=== PATIENT | male | born 2005 | race Hispanic/Latino ===

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

== ENCOUNTER 2024-01-03 12:09 | Emergency (ER) | payer MEDICAID, OTHER, SELFPAY ==
[2024-01-03] MEDS ORDERED: Fluorescein Opthalmic Strip ONE (13:21)
[2024-01-03] MEDS ORDERED: Proparacaine 0.5% Opth 15 ML BOT ONE (13:22)
== END 2024-01-03 14:12 | disposition home or self-care (01) ==
LOC: ERS 12:09
DX: H10.9 Unspecified conjunctivitis (principal); F17.220 Nicotine dependence, chewing tobacco, uncomplicated
CPT/HCPCS: 99283